=== PATIENT | male | born 1960 | race Caucasian/White ===

== ENCOUNTER 2025-05-08 11:34 | Inpatient (IN) | payer OTHER ==
[~2025-05-08] VITALS: Ht 190.5 cm; Wt 108.9 kg
[2025-05-08 11:38] VITALS: O2SAT 98
[2025-05-08] MEDS: MORPHINE SULFATE 4 MG/ML INJ (FOR IV/IM USE) IV ONE ×3 (12:21→14:44)
[2025-05-08 13:10] LABS: BASOPHILS % 0.5 % (0.0-2.0); EOSINOPHILS % 1.8 % (0.0-5.0); HEMATOCRIT. 44.2 % (42.0-52.0); HEMOGLOBIN. 15.2 g/dL (14.0-18.0); LYMPHOCYTES % 34.2 % (20.0-50.0); MEAN PLATELET VOLUME 7.4 fl (7.4-10.4); MONOCYTES % 8.7 % (2.0-8.0); NEUTROPHILS % 54.8 % (40.0-76.0); PLATELET 268 x1000/uL (130-400); RED BLOOD CELL COUNT 4.82 mill/uL (4.7-6.1); RED CELL DISTRIBUTION WIDTH 13.4 % (11.6-14.6)
[2025-05-08 13:21] LABS: CREATININE 1.0 mg/dL (0.6-1.3); UREA NITROGEN BLOOD 15 mg/dL (9-23)
[2025-05-08 13:23] LABS: ASPARTATE AMINOTRANSFERASE 16 IU/L (<34); BILIRUBIN DIRECT 0.3 mg/dL (<=3.0); BILIRUBIN TOTAL 1.3 mg/dL (0.1-1.0); PROTEIN TOTAL 7.3 g/dL (6.0-8.3)
[2025-05-08 13:33] LABS: CLARITY URINE CLEAR (CLEAR); COLOR URINE YELLOW (YELLOW); GLUCOSE URINE NEGATIVE (NEGATIVE); KETONES URINE NEGATIVE (NEGATIVE); LEUKOCYTE ESTERASE URINE NEGATIVE (NEGATIVE); NITRITE URINE NEGATIVE (NEGATIVE); OCCULT BLOOD URINE TRACE (NEGATIVE); PH URINE 6.5 (4.5-8.0); PROTEIN URINE NEGATIVE (NEGATIVE); SPECIFIC GRAVITY URINE 1.017 (1.005-1.030); UROBILINOGEN URINE 0.2 E.U./dL (0.2-1.0)
[2025-05-08 14:07] LABS: BACTERIA URINE NONE SEEN; SQUAMOUS EPITHELIAL CELL URINE RARE /lpf (RARE/1+); WBC URINE 0-2 /hpf (0-2); YEAST URINE NONE SEEN
[2025-05-08] MEDS ORDERED: IPRATROPIUM/ALBUTEROL 0.5-3(2.5)MG/3ML NEB HHN PRN (16:15)
[2025-05-08] MEDS ORDERED: ONDANSETRON HCL 4MG/2ML INJ IV SCH (16:15)
[2025-05-08] MEDS ORDERED: DEXTROSE 50% WATER 50ML SYRINGE IV PRN (16:15)
[2025-05-08] MEDS ORDERED: DOCUSATE SODIUM 100MG CAPSULE PO PRN (16:15)
[2025-05-08] MEDS ORDERED: ACETAMINOPHEN 325MG TABLET PO PRN (16:15)
[2025-05-08] MEDS ORDERED: GUAIFENESIN 200MG/10ML SUGAR FREE UDC PO PRN (16:15)
[2025-05-08] MEDS ORDERED: MAGNESIUM/ALUMINUM HYDROXIDE/SIMETHICONE 30ML UDC PO PRN (16:15)
[2025-05-08] MEDS ORDERED: MORPHINE SULFATE 4 MG/ML INJ (FOR IV/IM USE) IV PRN (16:15)
[2025-05-08] MEDS ORDERED: KETOROLAC 15MG/ML VIAL IV PRN (16:30)
[2025-05-08] MEDS ORDERED: POTASSIUM CHLORIDE 10MEQ TABLET SR PO NR (16:36)
[2025-05-08 16:44] LABS: TRIGLYCERIDE 143.0 mg/dL (0-150)
[2025-05-08 16:45] LABS: LDL CHOLESTEROL 177.0 mg/dL (5-100)
[2025-05-08] MEDS ORDERED: NALOXONE HCL 0.4MG/ML VIAL IV PRN (16:45)
[2025-05-08 16:46] LABS: PHOSPHORUS 3.3 mg/dL (2.5-4.9)
[2025-05-08] MEDS ORDERED: HYDRALAZINE 20MG/ML VIAL IV PRN (18:00)
[2025-05-08] MEDS: KETOROLAC 15MG/ML VIAL IV SCH (18:45)
[2025-05-08] MEDS: TAMSULOSIN HCL 0.4MG SR CAPSULE PO SCH (18:45)
[2025-05-08] MEDS: POTASSIUM CHLORIDE 20MEQ TABLET SR PO NR (18:45)
[2025-05-08] MEDS: PANTOPRAZOLE SODIUM 40 MG/VIAL IV SCH (18:46)
[2025-05-08 20:00] VITALS: BP 141/97; PULSE 70; RESP 16; TEMP 36.3; O2SAT 98
[2025-05-08] MEDS ORDERED: AMLODIPINE 5MG TABLET PO SCH (21:00)
[2025-05-08] MEDS ORDERED: ATORVASTATIN CALCIUM 10MG TABLET PO SCH (21:00)
[2025-05-08] MEDS: ATORVASTATIN CALCIUM 40MG TABLET PO SCH (22:25)
[2025-05-08] MEDS: AMLODIPINE 10MG TABLET PO SCH (22:26)
[2025-05-08 22:36] VITALS: BP 141/97; PULSE 70; RESP 16; TEMP 36.3068
[2025-05-09] VITALS: BP 111/75; PULSE 78; RESP 18; TEMP 36.4; O2SAT 96
[2025-05-09] MEDS: ONDANSETRON HCL 4MG/2ML INJ IV SCH (00:15)
[2025-05-09] MEDS: ACETAMINOPHEN 325MG TABLET PO PRN (03:30)
[2025-05-09 04:00] VITALS: BP 127/89; PULSE 69; RESP 19; TEMP 36.6; O2SAT 98
[2025-05-09 06:25] LABS: BASOPHILS % 0.4 % (0.0-2.0); EOSINOPHILS % 1.3 % (0.0-5.0); HEMATOCRIT. 41.3 % (42.0-52.0); HEMOGLOBIN. 14.1 g/dL (14.0-18.0); LYMPHOCYTES % 25.2 % (20.0-50.0); MEAN PLATELET VOLUME 7.2 fl (7.4-10.4); MONOCYTES % 10.7 % (2.0-8.0); NEUTROPHILS % 62.4 % (40.0-76.0); PLATELET 241 x1000/uL (130-400); RED BLOOD CELL COUNT 4.51 mill/uL (4.7-6.1); RED CELL DISTRIBUTION WIDTH 13.4 % (11.6-14.6)
[2025-05-09 07:04] LABS: CREATININE 0.9 mg/dL (0.6-1.3); UREA NITROGEN BLOOD 12 mg/dL (9-23)
[2025-05-09 07:08] LABS: T4 FREE 1.24 ng/dL (0.89-1.76)
[2025-05-09 08:00] VITALS: BP 121/82; PULSE 62; RESP 17; TEMP 36.4; O2SAT 98
[2025-05-09 12:00] VITALS: BP 107/72; PULSE 68; RESP 16; TEMP 36.1; O2SAT 96
[2025-05-09] MEDS ORDERED: HYDRALAZINE 10 MG in SODIUM CHLORIDE 0.9% 49.5 ML IV PRN (12:00)
[2025-05-09] MEDS: POTASSIUM CHLORIDE 20MEQ/PACKET PO NR (12:14)
[2025-05-09] MEDS ORDERED: TAMS-54 PO (13:45)
[2025-05-09] MEDS ORDERED: AMLO10TA80 MT (13:45)
[2025-05-09] MEDS ORDERED: ATOR40TA70 MT (13:45)
[2025-05-09] MEDS ORDERED: KETO10TA2 MT (13:47)
[2025-05-09 14:38] VITALS: BP 109/63; PULSE 70; RESP 16; TEMP 97.7
== END 2025-05-09 15:19 | disposition home or self-care (01) | DRG 694 ==
LOC: ER 11:34 → 4WST 13:42 → EDBEDREQ 13:43 → EDBEDREQTM 13:43 → ENRESERV 18:49
PROVIDERS: ADMIT Hospitalist; ATTEND Hospitalist
DX: N13.2 Hydronephrosis with renal and ureteral calculous obstruction (principal); E66.811 Obesity, class 1; E78.00 Pure hypercholesterolemia, unspecified; I10 Essential (primary) hypertension; K40.20 Bilateral inguinal hernia, without obstruction or gangrene, not specified as recurrent; K57.30 Diverticulosis of large intestine without perforation or abscess without bleeding; E87.6 Hypokalemia; E80.6 Other disorders of bilirubin metabolism; Z79.899 Other long term (current) drug therapy; Z87.442 Personal history of urinary calculi; Z68.30 Body mass index [BMI] 30.0-30.9, adult
CPT/HCPCS: 36415; 74176; 80048; 80061; 80076; 81003; 82962; 83036; 83735; 84100; 84439; 84443; 84550; 85025; 93970; 99285; J1885; J2270; J2405; J2470